=== PATIENT | female | born 1975 | race Caucasian/White ===

== ENCOUNTER 2020-05-19 14:07 | Inpatient (IN) | payer OTHER ==
[~2020-05-19] VITALS: Ht 162.6 cm; Wt 70.3 kg
[~2020-05-19 14:07] MED LIST: CIPRO500 MG PO; IRON1TAB4 PO
[2020-06-07] MEDS ORDERED: PERCOCET 5-3251 EACH PO (11:31)
[2020-06-07] MEDS ORDERED: ICAR-C PLUS TA1 EACH PO (11:31)
[2020-06-07] MEDS ORDERED: SURFAK240 M1 PO (11:31)
== END 2020-06-07 13:31 | disposition home or self-care (01) | DRG 743 ==
LOC: OB/GYN 06-04 07:00 → O/R 06-04 10:41 → OB/GYN 06-04 14:00
PROVIDERS: Urology; ADMIT Obstetrics & Gynecology; ATTEND Obstetrics & Gynecology
PROC: 0T788DZ Dilation of Bilateral Ureters with Intraluminal Device, Via Natural or Artificial Opening Endoscopic (ICD-10-PCS; 2020-06-04)
PROC: 0UT90ZZ Resection of Uterus, Open Approach (ICD-10-PCS; principal; 2020-06-04 14:00)
PROC: 0UT70ZZ Resection of Bilateral Fallopian Tubes, Open Approach (ICD-10-PCS; 2020-06-04 14:00)
DX: D25.1 Intramural leiomyoma of uterus (principal); D25.0 Submucous leiomyoma of uterus; D25.2 Subserosal leiomyoma of uterus; N80.0 Endometriosis of uterus; N72 Inflammatory disease of cervix uteri; D26.1 Other benign neoplasm of corpus uteri; H35.023 Exudative retinopathy, bilateral; I10 Essential (primary) hypertension; N93.8 Other specified abnormal uterine and vaginal bleeding; D64.9 Anemia, unspecified; N20.0 Calculus of kidney

== ENCOUNTER 2021-07-09 11:18 | Outpatient (CLI) | payer OTHER ==
[~2021-07-09 11:18] MED LIST changes: +ICAR-C PLUS TA1 EACH PO; +PERCOCET 5-3251 EACH PO; +SURFAK240 M1 PO
== END 2021-07-09 12:58 | disposition home or self-care (01) ==
LOC: SONOGRAMA 11:18
PROVIDERS: ATTEND Pathology Anatomic Pathology & Clinical Pathology
DX: E04.2 Nontoxic multinodular goiter (principal)